=== PATIENT | female | born 1940 | race Asian ===

== ENCOUNTER 2016-10-10 09:08 | Emergency (ER) | payer MEDICARE ==
[~2016-10-10] VITALS: Ht 149.9 cm; Wt 54.5 kg
[2016-10-10 09:19] VITALS: BP 165/64; PULSE 87; RESP 14; O2SAT 97
--- NOTE | 2016-10-10 09:24 | ED.REPORT ---
HPI-Extremity Problem Lower Date of Service October 10, 2016 ED Provider: Monique Ponce MD Patient is a 76 year old female with a history of diabetes who presents to the ED complaining of left glute pain onset last night. Associated symptoms include pain that radiates down her left leg. She denies fever, chills, numbness, weakness, or incontinence. The patient describes the pain as a sharp pain and rates it as a 5/10. She states she has not had any increased activity or falls. Patient reports she has not taken any pain medications. Nursing Notes Stated Complaint: HIP PAIN Chief Complaint: Extremity Trauma Nursing Notes Reviewed: Yes Allergies: Coded Allergies: No Known Allergies (Unverified , 10/10/16) Scheduled PRN Hydrocodone-Acetaminophen 5-325 mg (Hydrocodone-Acetaminophen 5-325 mg) 1 Each Tablet 1 TABLET PO Q6H PRN PRN For Pain Naproxen (Naproxen) 375 Mg Tablet 375 MG PO BID PRN PRN For Pain General Time Seen by MD: 09:23 Chief Complaint Thigh injury left Hx Obtained From: Patient Arrived By: Walk-in Onset Occurred: Yesterday Symptom Duration: Since onset Location: : Thigh left Recent Healthcare: No recent doctor visit, No recent hospitalization Similar Sx Previous: No Past Medical History Past Medical History Reports: Diabetes mellitus Past Surgical History none reported Smoking History Unknown if Ever Smoker Social History Other Social History: Good social support Ambulatory Status Independent Review of Systems Constitutional: Denies: Chills, Fever Complete sys rev & neg: except as marked. Physical Exam Initial Vital Signs Vital Signs (First) Date Time Temp Pulse Resp B/P Pulse Ox O2 Delivery O2 Flow Rate FiO2 10/10/16 09:19 36.4 87 14 165/64 97 Initial VS: Reviewed, Vital signs abnormal Lower Extremity / Pelvis / MS: No swelling, No erythema, Neurologic intact, Vascular intact left glute tenderness Ankle / Foot: Atraumatic, Full range of motion, No swelling, No erythema, Neurologic intact, Vascular intact General/Constitutional: Awake, Alert, No acute distress Respiratory / Chest: Atraumatic, No respiratory distress Skin: Atraumatic, Color NL, No rash, Warm, Dry Neurologic: Oriented X3, Speech NL, No motor deficits, No sensory deficits Head / Eyes: Atraumatic, Normocephalic, PERRL, EOMI Upper Extremity / MS: Atraumatic, Full range of motion Psychiatric: Affect NL, Mood NL Re-Eval/Medical Decision Med Decision/Clinical Course The patient's symptoms are consistent with sciatica, she is neurologically intact. She is given medication for symptomatic treatment. There is no sign of deep tissue infection such as abscess, cellulitis, or septic arthritis. She does not have any history of trauma and has had this once before. Re-Evaluation/Progress : Time of Eval: 09:25 Re-Evaluation/Progress Note: Discussed diagnosis and plan for discharge during initial interview. The patient understands and agrees to the plan for discharge. All questions were addressed. Counseled Regarding: Diagnosis, Lab results, Need for follow-up, When/why to return to ED Discharge & Departure Impression: Primary Impression: Sciatica Laterality: left Qualified Code: M54.32 - Sciatica, left side Disposition: Home Discharge Condition All VS Reviewed: Yes Condition: Stable Patient Instructions: Sciatica (ED) Additional Instructions: You were seen today for leg pain and have sciatica. Take 1/2 a pill of pain medication (as prescribed) up to every 6 hours. Take the pain medication sparingly as it can cause constipation. Be sure to take it with food and add extra fiber to your diet. Continue activity as tolerated by your pain. Follow up with your primary care physician next week. Please return to the emergency department if you develop any new or worsening symptoms including weakness, numbness or tinging in your leg. Josué Attestation Portions of this note were transcribed by Olivia Barnett. I, Dr. Ponce personally performed the history, physical exam and medical decision-making; I reviewed and confirmed the accuracy of the information in the transcribed note. Signed by: Josué Aleman, 10/10/16 and 0950 Monique Ponce MD October 10, 2016 09:24 Tiffany Barnett October 10, 2016 09:32
[2016-10-10] MEDS ORDERED: HYDROcodone-APAP 5-325 mg Tablet PO ONE (09:30)
[2016-10-10] MEDS ORDERED: HYDR-4003 PO (10:20)
[2016-10-10] MEDS ORDERED: NAPR375T2 PO (10:20)
== END 2016-10-10 10:48 | disposition home or self-care (01) ==
LOC: SED 09:08
DX: M54.32 Sciatica, left side (principal); E11.9 Type 2 diabetes mellitus without complications

== ENCOUNTER 2016-11-23 19:43 | Emergency (ER) | payer MEDICARE ==
[~2016-11-23] VITALS: Ht 149.9 cm; Wt 52.3 kg
[~2016-11-23 19:43] MED LIST: HYDR-4003 PO; NAPR375T2 PO
[2016-11-23 19:58] VITALS: BP 187/90; PULSE 89; RESP 20; O2SAT 97
--- NOTE | 2016-11-23 22:20 | ED.REPORT ---
HPI-Back Pain 40 and Over Date of Service Nov 23, 2016 ED Provider: Dr. Saenz 76 y/o female with a hx of DM and sciatica presents to the ED complaining of left sided back pain that radiates down her left leg, onset this morning. The pt has been experiencing this pain intermittently for several months but it worsened today.She reports difficulty walking today due to the pain. She has not seen a doctor for this pain in 5 months. She denies any trauma to the leg, numbness in the left leg, incontinence and decreased sensation. She also denies taking any pain medication and having a back surgery. Nursing Notes Stated Complaint: SCIATICA, LEFT LEG Chief Complaint: Back Pain or Injury Nursing Notes Reviewed: Yes Allergies: Coded Allergies: No Known Allergies (Unverified , 10/10/16) Scheduled Omeprazole (Omeprazole) 20 Mg Tablet.dr 20 MG PO BID Scheduled PRN Hydrocodone-Acetaminophen 5-325 mg (Hydrocodone-Acetaminophen 5-325 mg) 1 Each Tablet 1 TABLET PO Q6H PRN PRN For Pain Methocarbamol (Robaxin-750) 750 Mg Tablet 750 MG PO QID PRN PRN For Spasm Naproxen (Naproxen) 375 Mg Tablet 375 MG PO BID PRN PRN For Pain Naproxen (Naprosyn) 500 Mg Tablet 500 MG PO BID PRN PRN For Pain General Time Seen by MD: 22:19 Chief Complaint Back pain (left sided) Hx Obtained From: Patient Arrived By: Walk-in Sudden in Onset?: No Onset Occurred: More than a week ago... (5 months) Symptom Duration: Intermittent Quality: Painful Radiation: : Left leg below knee Severity: Current: Mild Severity: Maximum: Moderate Recent Healthcare: No recent doctor visit Similar Sx Previous: Yes Past Medical History Past Medical History Diabetes Mellitus Sciatica Past Surgical History Reports: Cholecystectomy Smoking History Unknown if Ever Smoker Ambulatory Status Independent Review of Systems Denies: decreased sensation Female: Denies: Incontinence Musculoskeletal: Reports: Back pain (left sided), Extremity pain (left leg) Neurologic: Denies: Numbness Complete sys rev & neg: except as marked. Physical Exam Initial Vital Signs Vital Signs (First) Date Time Temp Pulse Resp B/P Pulse Ox O2 Delivery O2 Flow Rate FiO2 11/23/16 19:58 36.6 89 20 187/90 97 Room Air Initial VS: Reviewed Head / Eyes: Atraumatic, Normocephalic Neck: Supple, Non-tender, Full range of motion Skin: Warm, Dry, No cyanosis General/Constitutional: Awake, Alert, No acute distress, Cooperative Respiratory / Chest: Atraumatic, Breath sounds NL, No respiratory distress, No wheezing Cardiovascular: Heart rate NL, Regular rhythm, Heart sounds NL, Peripheral circulation NL, Pulses = bilaterally Abdomen: Atraumatic, Soft Back: Atraumatic, Full range of motion, Painless range of motion, Straight leg raise neg Neurologic: Oriented X3, Speech NL, No motor deficits, No sensory deficits, CN II - XII intact, Reflexes equal bilat Interpretation & Diagnostics Exam: Lumbar Spine X-ray Findings: 1) 6mm listhesis on L4 and L5 2) 3mm listhesis on L3 and L4 3) No evidence of metastatic lesions 4) No acute fracture Re-Eval/Medical Decision Med Decision/Clinical Course 76-year-old presents with intermittent left-sided sciatica. She has no history of trauma. Her x-ray shows considerable spondylolisthesis of L4 on L5 and probable spinal stenosis behind that. There is a lesser was feces at L3 over L4. There is spurring and calcification of ligaments diffusely. No fracture and no metastatic disease seen. Other than intermittent sciatica, she is relatively asymptomatic, without a story that suggests chronic spinal stenosis. She is begun with Naprosyn twice a day, methocarbamol when necessary. Follow-up with PCP. Consider advanced imaging if symptoms persist. Source of Hx: Old records Re-Evaluation/Progress : Time of Eval: 22:37 Re-Evaluation/Progress Note: Discussed imaging results, diagnosis and plan to discharge. Pt understands and agrees with the plan. F/U instructions and RTER warning given. All questions addressed. Counseled Regarding: Diagnosis, Need for follow-up, When/why to return to ED Discharge & Departure Impression: Primary Impression: Sciatica Additional Impressions: Degenerative joint disease (DJD) of lumbar spine Spondylolisthesis at L4-L5 level Disposition: Home Discharge Condition All VS Reviewed: Yes Condition: Stable Patient Instructions: Sciatica (ED) Additional Instructions: Your x-ray shows significant degenerative joint disease with spurs, and misalignment of the vertebral column. This is probably mostly chronic. However , if you develop worsening pain, numbness or weakness, or other new symptoms, this may require more urgent attention. Follow-up with your doctor in the office. Begin Naprosyn twice daily. Begin omeprazole twice daily as long as you are on the Naprosyn. Begin methocarbamol four times daily as needed for spasm and pain. Return if you develop numbness, weakness, bowel or bladder problems. Referrals: Jean Vallejo MD Scribe Attestation Portions of this note were transcribed by Nicho Edgar. I, , personally performed the history, physical exam and medical decision- making;I reviewed and confirmed the accuracy of the information in the transcribed note. Signed by Josué Horowitz. 11/23/16 23:25 copies to: Jean Vallejo MD, Christopher W MD Nov 23, 2016 22:20 Nicho Edgar Nov 23, 2016 22:25
[2016-11-23] MEDS ORDERED: NAPR500T PO (23:17)
[2016-11-23] MEDS ORDERED: METH-313 PO (23:17)
[2016-11-23] MEDS ORDERED: OMEP20TA86 PO (23:18)
[2016-11-23 23:30] VITALS: BP 150/79; PULSE 84; RESP 18; O2SAT 100
--- NOTE | 2016-11-24 07:59 | DRSVH ---
PROCEDURE: X-RAY LUMBAR SPINE, 2 OR 3 VIEW INDICATIONS: left sciatica TECHNIQUE: 3 views of the lumbar spine were acquired. COMPARISON: None. FINDINGS: Bones: 5 [id number] vertebrae are present. No acute fractures or dislocations. There is grade 1 anterolisthesis of L4-5 otherwise normal lumbar vertebral body alignment. Intervertebral body disc h eight loss and osteophyte formation consistent with age-appropriate degenerative change greatest infe riorly. Facet joint arthropathy. Osteopenia. Soft tissues: Overlying bowel gas pattern is normal. No suspicious soft tissue calcifications. IMPRESSION: 1. No acute lumbar spine pathology on plain film radiography. 2. Degenerative changes. 3. Osteopenia. Consider evaluation with DEXA or referral to a fracture risk clinic on a non-emergent basis. Dictated by: Douglas Drake M.D. on 11/24/2016 at 7:56 Approved by: Douglas Drake M.D. on 11/24/2016 at 7:57
== END 2016-11-23 23:32 | disposition home or self-care (01) ==
LOC: SED 19:43 → EDBD 19:43 → EDUNIT# 19:43 → SED 23:32
DX: M54.32 Sciatica, left side (principal); M51.36 Other intervertebral disc degeneration, lumbar region; M43.16 Spondylolisthesis, lumbar region; E11.9 Type 2 diabetes mellitus without complications
CPT/HCPCS: 72100; 96372; 99283; J1885

== ENCOUNTER 2016-12-26 18:29 | Emergency (ER) | payer MEDICARE ==
[~2016-12-26] VITALS: Ht 149.9 cm; Wt 54.5 kg
[~2016-12-26 18:29] MED LIST changes: +METH-313 PO; +NAPR500T PO; +OMEP20TA86 PO
[2016-12-26 18:43] VITALS: BP 163/67; PULSE 85; RESP 16; O2SAT 99
--- NOTE | 2016-12-26 20:31 | ED.REPORT ---
HPI-Extremity Problem Lower Date of Service Dec 26, 2016 ED Provider: Elijah Vinson MD Patient is a 76 year old female with a history of diabetes who presents to the ED complaining of left knee pain onset this morning. She reports that the pain limits her range of motion with bending. Patient denies fever, vomiting, recent illness or injury that could cause her pain. She states that the pain is in the back of her knee. Nursing Notes Stated Complaint: PAIN IN LEFT LEG Chief Complaint: Extremity Trauma Nursing Notes Reviewed: Yes Allergies: Coded Allergies: No Known Allergies (Unverified , 12/26/16) Scheduled Omeprazole (Omeprazole) 20 Mg Tablet.dr 20 MG PO BID Scheduled PRN Hydrocodone-Acetaminophen 5-325 mg (Hydrocodone-Acetaminophen 5-325 mg) 1 Each Tablet 1 TABLET PO Q6H PRN PRN For Pain Methocarbamol (Robaxin-750) 750 Mg Tablet 750 MG PO QID PRN PRN For Spasm Naproxen (Naproxen) 375 Mg Tablet 375 MG PO BID PRN PRN For Pain Naproxen (Naprosyn) 500 Mg Tablet 500 MG PO BID PRN PRN For Pain General Time Seen by MD: 20:30 Chief Complaint Knee injury left Hx Obtained From: Patient Arrived By: Walk-in Onset Occurred: 5 - 8 hours ago Symptom Duration: Since onset Location: : Knee left Quality: Painful Severity: Current: Moderate Exacerbated by: Range of motion, Bending Recent Healthcare: No recent hospitalization, Recent doctor visit Past Medical History Past Medical History Sciatica Reports: Diabetes mellitus Past Surgical History Reports: Cholecystectomy Smoking History Unknown if Ever Smoker Social History Other Social History: Good social support Ambulatory Status Independent Review of Systems Constitutional: Denies: Chills, Fever Musculoskeletal: Reports: Extremity pain (left knee) Skin: Denies Bruising, Denies Itching, Denies Rash Neurologic: Denies: Numbness, Problem walking, Weakness Complete sys rev & neg: except as marked. Respiratory: Denies: Non-productive cough, Shortness of breath GI: Denies: Nausea, Vomiting Physical Exam Initial Vital Signs Vital Signs (First) Date Time Temp Pulse Resp B/P Pulse Ox O2 Delivery O2 Flow Rate FiO2 12/26/16 18:43 36.9 85 16 163/67 99 Room Air Initial VS: Reviewed Lower Extremity / Pelvis / MS: Atraumatic, No swelling, No erythema, No deformity pain with flexion of the left knee non tender No warmth or redness Ankle / Foot: Atraumatic, Inspection NL, No deformity General/Constitutional: Awake, Alert Respiratory / Chest: Atraumatic, No respiratory distress Skin: Atraumatic, Color NL, No rash, Warm, Dry Neurologic: Oriented X3, Speech NL, No motor deficits, No sensory deficits Head / Eyes: Atraumatic, Normocephalic, PERRL, EOMI Psychiatric: Affect NL, Mood NL Interpretation & Diagnostics X-Ray Interpretation Xray Interpretation: IMPRESSION: 1. Symmetric bilateral medial knee joint degeneration. 2. Large left knee joint effusion is of uncertain etiology. Dictated by: Easton Persaud M.D. on 12/26/2016 at 21:11 Approved by: Easton Persaud M.D. on 12/26/2016 at 21:13 X-Ray Ordered: Knee left Re-Eval/Medical Decision Re-Evaluation/Progress : Time of Eval: 21:35 Re-Evaluation/Progress Note: Discussed X-ray results and plan for discharge. Patient understands and agrees to the plan. All questions were addressed Counseled Regarding: Diagnosis, Lab results, Need for follow-up, When/why to return to ED Discharge & Departure Impression: Primary Impression: Knee effusion, left Disposition: Home Discharge Condition All VS Reviewed: Yes Condition: Stable Patient Instructions: Knee Pain (ED) Additional Instructions: Your X-ray showed no evidence of a fracture but there is a significant amount of fluid in your left knee. You can take 1000mg of Tylenol every 6 hours as needed for pain. Elevate your leg as much as possible. Use ice packs as needed for up to 30 minutes at a time. Follow-up with the primary care provider listed next week for further evaluation. Return to the emergency department if you develop any new or concerning symptoms. Referrals: Marisabel Bar PAC 3 to 4 Days Scribe Attestation Portions of this note were transcribed by Olivia Barnett. I, Dr. Vinson personally performed the history, physical exam and medical decision-making; I reviewed and confirmed the accuracy of the information in the transcribed note. Signed by: Josué Aleman, 12/26/16 copies to: [facility] Elijah Vinson MD Dec 26, 2016 20:30 Tiffany Barnett Dec 26, 2016 20:33
--- NOTE | 2016-12-26 21:15 | DRSVH ---
PROCEDURE: KNEE ARTHRITIC SERIES LT (P) INDICATIONS: 76 year-old female with posterior left knee pain for one day, without trauma. TECHNIQUE: 4 views of the left knee, and 3 views of the right knee. COMPARISON: None. FINDINGS: Bones: No acute fractures or dislocations. Patellar alignment is normal on the sunrise view. No salas spicious bony lesions. There is medial bilateral knee joint narrowing on weight-bearing. Soft tissues: There is large left knee joint effusion. No suspicious soft tissue calcification. IMPRESSION: 1. Symmetric bilateral medial knee joint degeneration. 2. Large left knee joint effusion is of uncertain etiology. Dictated by: Easton Persaud M.D. on 12/26/2016 at 21:11 Approved by: Easton Persaud M.D. on 12/26/2016 at 21:13
[2016-12-26 22:00] VITALS: BP 160/62; PULSE 82; RESP 16; O2SAT 100
== END 2016-12-26 22:01 | disposition home or self-care (01) ==
LOC: SED 18:29
DX: M25.462 Effusion, left knee (principal); E11.9 Type 2 diabetes mellitus without complications

== ENCOUNTER 2016-12-27 09:43 | Emergency (ER) | payer MEDICARE ==
[~2016-12-27] VITALS: Ht 149.9 cm; Wt 50.0 kg
[2016-12-27 09:46] VITALS: BP 174/81; PULSE 77; RESP 10; O2SAT 99
--- NOTE | 2016-12-27 09:59 | ED.REPORT ---
HPI-Extremity Problem Lower Date of Service Dec 27, 2016 ED Provider: Jacobo Perez MD Pt is a 76 y/o female w/ a hx of DM, presenting to the ED c/o left posterior knee pain onset last night. The patient was seen in the ED yesterday for the same complaint and was diagnosed with large left knee effusion of uncertain etiology as well as bilateral medial knee joint degeneration. Pt denies any trauma or injury, fever, numbness/weakness of the legs. Pain is exacerbated with flexion of the knee. The patient was also recently seen for sciatica which she states is better. X-ray of the left and right knee taken yesterday interpreted as below: 1. Symmetric bilateral medial knee joint degeneration. 2. Large left knee joint effusion is of uncertain etiology. Nursing Notes Stated Complaint: NEED STRONGER PAIN MEDICATION Chief Complaint: Extremity Trauma Nursing Notes Reviewed: Yes ([facility], tx) Allergies: Coded Allergies: No Known Allergies (Unverified , 12/26/16) Scheduled Omeprazole (Omeprazole) 20 Mg Tablet.dr 20 MG PO BID Scheduled PRN Hydrocodone-Acetaminophen 5-325 mg (Hydrocodone-Acetaminophen 5-325 mg) 1 Each Tablet 1 TABLET PO Q6H PRN PRN For Pain Methocarbamol (Robaxin-750) 750 Mg Tablet 750 MG PO QID PRN PRN For Spasm Naproxen (Naproxen) 375 Mg Tablet 375 MG PO BID PRN PRN For Pain Naproxen (Naprosyn) 500 Mg Tablet 500 MG PO BID PRN PRN For Pain General Time Seen by MD: 09:51 Chief Complaint Other (l knee pain) Hx Obtained From: Patient Arrived By: Walk-in Onset Occurred: 9 - 12 hours ago Symptom Duration: Since onset Location: : Knee left Quality: Painful Severity: Current: Moderate Severity: Maximum: Moderate Exacerbated by: Range of motion Recent Healthcare: Recent doctor visit, Recent testing, Previous diagnosis, Prior workup Past Medical History Past Medical History Sciatica Bilateral medial knee joint degeneration Reports: Diabetes mellitus Past Surgical History Reports: Cholecystectomy Smoking History Unknown if Ever Smoker Social History Other Social History: Good social support Ambulatory Status Independent Review of Systems Constitutional: Denies: Chills, Fever Musculoskeletal: Reports: Joint pain Neurologic: Denies: Focal weakness, Numbness, Weakness Complete sys rev & neg: except as marked. Physical Exam Initial Vital Signs Vital Signs (First) Date Time Temp Pulse Resp B/P Pulse Ox O2 Delivery O2 Flow Rate FiO2 12/27/16 09:46 36.7 77 10 174/81 99 Room Air Initial VS: Reviewed, Vital signs normal (HTN) Head / Eyes: Atraumatic, Normocephalic, PERRL ENT: Mucous membranes moist, Conjunctiva normal, No scleral icterus Neck: Supple, Full range of motion Respiratory: Breath sounds normal, Clear to auscultation, No respiratory distress Cardiovascular: Regular rate & rhythm, Heart sounds normal, Intact distal pulses Abdomen / GI: Soft Upper Extremities: Vascular intact, Neuro intact, No swelling Skin: Warm, Dry, No cyanosis Neurologic: Alert, Oriented, Nonfocal Psychiatric: Mood/affect normal, Behavior normal, Normal thought content Lower Extremity / Pelvis / MS: No deformity, Neurologic intact, Vascular intact Left knee: No warmth No effusion No signs of septic joint No ligamentous laxity I looked at the radiographs and do not appreciate an effusion there as well Ankle / Foot: No deformity, Neurologic intact, Vascular intact No ankle or foot tenderness or swelling General/Constitutional: Awake, Alert, No acute distress, Cooperative, Not toxic appearing Thin Interpretation & Diagnostics US Focused Lower Ext Venous LLE no DVT per US tech - radiologist read pending Exam Performed by: Allied health pract Exam Type: Diagnostic Exam Interpreted by: Allied health pract Re-Eval/Medical Decision Med Decision/Clinical Course This is a 76-year-old female presents complaining of some persistent pain in the left leg, behind the left knee and left calf. She was seen yesterday and diagnosed with an effusion, had 2 prior visits for sciatica. Sciatica symptoms today. She denies any recent trauma, reports she took 2 baby aspirin last night but it did not help with the pain-and so she came back in. He has had no swelling of the leg, no numbness, weakness, paresthesias. No redness. Exam she has normal vitals and appears well. She is thin, and exam is maybe more reliable -and although the radiograph was read by the radiologist as positive for sizable knee effusion-none is evident clinically on thin individual. There is no redness, warmth, there is preserved range of motion, no clinical signs of infection or septic joint or evident. She does have some tenderness in the posterior calf-but no swelling. Was neurovascularly intact. At this point an ultrasound was obtained- and it was negative for DVT or mendenhall' s cyst. Definitive pathology not identified. Patient's received Tylenol, with complete relief of discomfort.. It turns out she is homeless, so vp digital marketing social media and crm consult was obtained-please see their note. She does have family she can stay with. She has been discharging the patient. At this point a dangerous etiology of the pain is not identified. The patient appears comfortable and well controlled with Tylenol. I advised continued Tylenol. I do not appreciate signs of infection, septic joint, DVT, Source of Hx: Old records Re-Evaluation/Progress : Time of Eval: 13:54 Re-Evaluation/Progress Note: Pt rechecked. Informed pt of plan for discharge. Pt understands and agrees with plan for discharge. F/U instructions and RTER warnings given. All questions addressed. Consultation : Consulted With: ornamental metal worker helper Call Returned at: 14:00 Special Needs Babysitter: Will see patient, Agrees with eval, Agrees with plan Note: Social work discussed the patient's homelessness and gave the patient options. Counseled Regarding: Diagnosis, Need for follow-up, When/why to return to ED Discharge & Departure Impression: Primary Impression: Left leg pain Disposition: Home Discharge Condition All VS Reviewed: Yes Condition: Stable Additional Instructions: 1. No blood clot or other abnormality was appreciated on ultrasound. 2. Although yesterday's x-ray was interpreted by the radiologist concerning for an effusion-which is a fluid collection in the knee-I do not appreciate any signs of effusion on your exam. 3. A dangerous cause of the leg pain was not identified. 4. I recommend adding tylenol for the pain - up to 1000mg three times a day as needed. 5. If her symptoms are worsening, if he develop a fever, or new swelling- returned yet again to the emergency department. If not improving over the next few days, follow-up with your primary care provider. Referrals: Jeremy Andrade Attestation Portions of this note were transcribed by Gabriel Haile. I, Dr. Perez personally performed the history, physical exam and medical decision-making; I reviewed and confirmed the accuracy of the information in the transcribed note. copies to: Jeremy Andrade Matthew F MD Dec 27, 2016 09:59 GABRIEL HAILE Dec 27, 2016 10:20
[2016-12-27] MEDS ORDERED: HYDROcodone-APAP 5-325 mg Tablet PO ONE (10:20)
[2016-12-27 13:28] VITALS: BP 182/70; PULSE 73; O2SAT 99
--- NOTE | 2016-12-27 14:39 | DRSVH ---
PROCEDURE: US VEINOUS LEG DUPLEX UNILATERAL, LEFT INDICATIONS: pain ro DVT TECHNIQUE: Real-time imaging, as well as color and pulse Doppler interrogation, were performed of the lower extr emity deep veins from the inguinal ligament to the popliteal fossa. COMPARISON: None. FINDINGS: The deep veins are normally compressible, and free of intraluminal thrombus. Color and pu lse Doppler demonstrate normal phasic intraluminal flow. There is normal augmentation response to di stal compression maneuver. IMPRESSION: No evidence of deep venous thrombosis. Dictated by: Chavez Adan M.D. on 12/27/2016 at 14:37 Approved by: Chavez Adan M.D. on 12/27/2016 at 14:37
[2016-12-27 15:01] VITALS: BP 163/77; PULSE 90; O2SAT 97
== END 2016-12-27 15:30 | disposition home or self-care (01) ==
LOC: SED 09:43
DX: M79.662 Pain in left lower leg (principal); E11.9 Type 2 diabetes mellitus without complications